=== PATIENT | male | born 2000 | race Caucasian/White ===

== ENCOUNTER 2020-01-16 20:52 | Emergency (ER) | payer OTHER, BC, SELFPAY ==
[2020-01-16 20:53] VITALS: BP 119/68; PULSE 68; RESP 14; TEMP 37.4; O2SAT 97; BMI 23.0
--- NOTE | 2020-01-16 21:04 | EKG12_ITS ---
Test Reason : CP Blood Pressure : / mmHG Vent. Rate : 076 BPM Atrial Rate : 076 BPM P-R Int : 118 ms QRS Dur : 084 ms QT Int : 360 ms P-R-T Axes : 043 095 047 degrees QTc Int : 405 ms Normal sinus rhythm with sinus arrhythmia Normal ECG Confirmed by JAMEEL JULIO, ANGELA ([id number]), sound editor KAILEE MCDANIEL ([id number]) on 01/20/2020 9:08:35 AM Referred By: JOVANNY JIANG Confirmed By:ANGELA JORGENSEN MD
--- NOTE | 2020-01-16 21:15 | ED.DCSUM_ITS ---
- ER Visit Summary Date of Service: 01/16/20 Chief Complaint: [Chest pain] History of Present Illness: The patient is a 19 M [presents to the emergency department with complaint of chest pain that started about 3 days ago. Patient states the pains been intermittent and feels kind like a flickering in his left chest that can last a couple of minutes and then resolves. At times he also feels like he cannot catch her full breath and cannot feel his lungs. He denies any recent travel or surgery. There is no family history of heart disease. He is not had any recent illness as far as fever, cough, body aches, sore throat, or headaches. Patient does have history of anxiety but is not medicated for it. Denies any trauma to his chest. He denies any abdominal pain.] Physical Examination: [HEENT-PERRLA, EOMI. Cranial nerves II through XII grossly intact. TMs clear. Mucous membranes moist. No adenopathy. Cardiovascular-regular rate and rhythm without murmur or ectopy Lungs-clear to auscultation, chest wall stable without crepitus or subcu emphysema Abdomen-normoactive bowel sounds, soft, nontender, no rebound or rigidity, no peritoneal signs. Extremities-intact ?4, normal range of motion, normal pulses, atraumatic] Test Results: [KG obtained on arrival shows sinus rhythm with a ventricular rate of 76 bpm with occasional PACs otherwise no acute ST segment changes noted.] Chest x-ray obtained was normal as read by myself and official report awaiting from radiology. Emergency Department Course and Treatment: [None indicated] Treatment Plan: [Patient to follow-up with primary care physician in 5 to 7 days.] Disposition: [Discharged home in stable condition] Impression: [Chest pain-etiology uncertain] This note was generated with [employer] dictation software. It may contain incorrect words, spelling, and punctuation that were not noted in review of the chart prior to signing ED Disposition - Plan for ED Patient: Referrals: Walt Garrett MD [Primary Care Provider] -
--- NOTE | 2020-01-16 21:25 | RAD_ITS ---
STUDY: X-RAY CHEST REASON FOR EXAM: Male, 19 years old. CHEST PAIN AND SOB. PT IS A SMOKER TECHNIQUE: Frontal and lateral views of the chest. COMPARISON: None. FINDINGS: The lungs are clear and expanded. There is no demonstrated pleural abnormality. Normal size heart. Normal mediastinum and fanny. Normal visualized pulmonary arteries. Normal visualized aortic arch and descending thoracic aorta. Normal visualized thoracic spine. Normal visualized ribs, clavicles, and shoulders. There is no demonstrated abnormality of the visualized soft tissue structures of the upper abdomen. RAD/Chest PA and Lateral IMPRESSION: Normal x-ray examination of the chest. Electronically Signed: Patricio Madison MD at 21:44 EDT Tel , Service support ,
--- NOTE | 2020-01-16 21:34 | ED.DEP ---
ED Disposition - Plan for ED Patient: Instructions: ED Chest Pain Atypical Unkn Cause Referrals: Walt Garrett MD [Primary Care Provider] - 5-7 Days
== END 2020-01-16 22:00 | disposition home or self-care (01) ==
LOC: ED 21:57
PROVIDERS: Emergency Provider Emergency Medicine; PCP Pediatrics
DX: R07.9 Chest pain, unspecified (principal); Z87.891 Personal history of nicotine dependence
CPT/HCPCS: 71046; 93005; 99283